=== PATIENT | female | born 1955 | race Caucasian/White ===

== ENCOUNTER 2016-12-04 18:23 | Emergency (ER) | payer SELFPAY ==
[~2016-12-04] VITALS: Ht 167.6 cm; Wt 56.0 kg
[2016-12-04 18:25] VITALS: BP 225/109; PULSE 89; RESP 16; TEMP 98.4; O2SAT 97
[2016-12-04] MEDS ORDERED: BACT400T PO (19:21)
[2016-12-04] MEDS ORDERED: CLIN150 PO (19:50)
--- NOTE | 2016-12-04 19:54 | PD ---
HPI Chief Complaint: Bite or Sting Time Seen by Provider: 19:50 Travel History International Travel<30 days: No Contact w/Intl Traveler<30days: No Traveled to known affect area: No History of Present Illness HPI 60-year-old white female presents emergency department complaints of right wrist swelling and pain. She states that she was stung by a bee in the wrist. She was seen on Tuesday at an urgent care was given prescription for Bactrim. She has had increasing pain and swelling since then. She denies any fever chills. No numbness, tingling or weakness. She has not had a tetanus shot over 5 years. [facility] Past Medical History Narrative Medical dENIES DIABETES AND HYPERTENSION Integumentary: Yes (RECENTLY TREATED FOR MRSA TO L HAND JUST COMPLETED RX FOR BACTRIM) Tetanus Vaccination: > 5 Years Menopausal: Yes Past Surgical History Surgical History: No Previous Surgery Social History Alcohol Use: Yes (RARE) Tobacco Use: No (JUST QUIT 4 DAYS AGO, PACK PER DAY) Substance Use: No Allergies-Medications (Allergen,Severity, Reaction): Coded Allergies: No Known Allergies (Verified , 12/04/16) Reported Meds & Prescriptions Reported Meds & Active Scripts Active Reported Bactrim (Sulfamethoxazole-Trimethoprim) 400-80 Mg Tab 1 Tab PO BID Review of Systems Except as stated in HPI: all other systems reviewed are Neg Physical Exam Narrative GENERAL: This is a well-nourished, well-developed patient, in no apparent distress. SKIN: Patient has a 1.5 x 1.5 cm indurated area with erythema, warmth and tenderness. There is a small central pustule. This is unroofed with an 18- gauge needle. Small amount of pus is expressed. No fluctuance or pointing. HEAD: Atraumatic. Normocephalic. EYES: PERRL, EOMI, no discharge or injection. No scleral icterus. EARS: Clear NOSE: Nasal turbinates appear normal. THROAT: Mucosa pink and moist. Airway patent. NECK: Trachea midline. supple, moves head freely. LUNGS: Clear to auscultation. CV: Regular in rhythm. ABDOMEN: Soft nontender. EXT: No clubbing cyanosis or edema. Data Data Last Documented VS Vital Signs Date Time Temp Pulse Resp B/P Pulse Ox O2 Delivery O2 Flow Rate FiO2 12/04/16 18:25 98.4 89 16 225/109 97 Orders Clindamycin (Cleocin) (12/04/16 20:00) Acetamin-Hydrocod 325-5 Mg ([place] 5-325 (12/04/16 20:00) Tetanus/Diphtheria Tox Adult (Tetanus/Di (12/04/16 20:00) MDM Medical Decision Making Medical Screen Exam Complete: Yes Emergency Medical Condition: Yes Medical Record Reviewed: Yes Differential Diagnosis MDM: High Differential diagnoses: Abscess, folliculitis, cellulitis, lymphangitis, abrasion, contact dermatitis Narrative Course Patient has a superficial abscess to the right dorsal wrist. Status post bee sting. Patient is given clindamycin 300 mg by mouth and Lortab 5 milligram by mouth. The wound is cleansed and dressing applied. Diagnosis Primary Impression: right wrist to superficial abscess Additional Impression: Bee sting Qualified Code: T63.444A - Bee sting, undetermined intent, initial encounter Patient Instructions: Narcotic given in the ED, General Instructions Additional Instructions: Rest. Elevation. keep clean and dry. Warm compresses Daily wound care with soap, water and Neosporin. Three Advil every 6 hours. Continue her Bactrim. Adding clindamycin. Follow-up with a primary care doctor in 2 days. Return to the ER for any problems. Med/Other Pt SpecificInfo: Prescription(s) given, Wound Care Scripts Clindamycin (Cleocin)150 Mg [id number] Mg PO Q6H #56 CAP Prov:Germain Jaimes MD 12/04/16 Disposition: 01 DISCHARGE HOME Condition: Stable Darian Lenz Dec 04, 2016 19:54
[2016-12-04] MEDS ORDERED: CLINDAMYCIN 150 MG CAP PO ONE (20:00)
[2016-12-04] MEDS ORDERED: TETANUS/DIPHTHERIA TOXOID ADULT 0.5 ML VIAL IM ONE (20:00)
[2016-12-04] MEDS ORDERED: ACETAMINOPHEN/HYDROcodone 325 MG/5 MG TAB PO ONE (20:00)
== END 2016-12-04 20:12 | disposition home or self-care (01) ==
LOC: NEPB 18:23
DX: L02.91 Cutaneous abscess, unspecified (principal); T63.441A Toxic effect of venom of bees, accidental (unintentional), initial encounter; X58.XXXA Exposure to other specified factors, initial encounter; Z23 Encounter for immunization
CPT/HCPCS: 10060; 90471; 90714

== ENCOUNTER 2017-01-14 12:00 | Emergency (ER) | payer SELFPAY ==
[~2017-01-14] VITALS: Ht 167.6 cm; Wt 57.0 kg
[~2017-01-14 12:00] MED LIST: BACT400T PO; CLIN150 PO
[2017-01-14 12:03] VITALS: BP 184/81; PULSE 78; RESP 15; TEMP 98; O2SAT 96
[2017-01-14] MEDS ORDERED: NAPROXEN 500 MG TAB PO ONE (12:45)
--- NOTE | 2017-01-14 12:45 | PD ---
HPI Chief Complaint: Injury Time Seen by Provider: 12:43 Travel History International Travel<30 days: No Contact w/Intl Traveler<30days: No Traveled to known affect area: No History of Present Illness HPI Patient comes in complaining of right pinky toe pain that began shortly prior to arrival. Patient states she went to step over a box when she accidentally jammed her toe. Patient states she caitlin taped it to the other toes with a Band -Aid that seemed to help. Pain is worse with walking. Denies any radiation of pain. PFSH Past Medical History Integumentary: Yes (RECENTLY TREATED FOR MRSA TO L HAND JUST COMPLETED RX FOR BACTRIM) ?: Not Menopausal: Yes Social History Alcohol Use: Yes (RARE) Tobacco Use: Yes Substance Use: No Allergies-Medications (Allergen,Severity, Reaction): Coded Allergies: No Known Allergies (Verified , 01/14/17) Reported Meds & Prescriptions Reported Meds & Active Scripts Active Cleocin (Clindamycin HCl) 150 Mg Cap 300 Mg PO Q6H Reported Bactrim (Sulfamethoxazole-Trimethoprim) 400-80 Mg Tab 1 Tab PO BID Review of Systems Except as stated in HPI: all other systems reviewed are Neg Physical Exam Narrative GENERAL: Well-developed, well nourished, in no acute distress, and non-ill appearing. SKIN: Warm and dry. HEAD: Atraumatic. Normocephalic. EYES: Pupils equal and round. EOMI. No scleral icterus. No injection or drainage. ENT: No nasal bleeding or discharge. Mucous membranes pink and moist. NECK: Trachea midline. Supple. No nuclear rigidity. CARDIOVASCULAR: Capillary refill less than 2 seconds. RESPIRATORY: No accessory muscle use. No respiratory distress. MUSCULOSKELETAL: No obvious deformities. No clubbing. No cyanosis. No edema. Full range of motion. Patient worsens to palpation proximal phalanx of right pinky toe. Patient stated strength with flexion and extension of the injured toe. NEUROLOGICAL: Awake and alert. No obvious cranial nerve deficits. Motor grossly within normal limits. Normal speech. PSYCHIATRIC: Appropriate mood and affect; insight and judgment normal. Data Data Last Documented VS Vital Signs Date Time Temp Pulse Resp B/P Pulse Ox O2 Delivery O2 Flow Rate FiO2 01/14/17 12:03 98.0 78 15 184/81 96 Orders Toe (Min 2vws) (01/14/17 ) Naproxen (Naprosyn) (01/14/17 12:45) Splint Or Brace Apply/Monitor (01/14/17 13:25) [facility] Medical Decision Making Medical Screen Exam Complete: Yes Emergency Medical Condition: Yes Differential Diagnosis Fracture, sprain, contusion, other Narrative Course The patient sustained a fracture. The distal extremity appears neurovascularly intact, without evidence of neurovascular injury nor compartment syndrome. Tendon exam also was intact. The effected limb was splinted. The patient was discharged with fracture and splint care instructions and given warnings for vascular compromise. The patient is to follow up with gis mapping technician. The patient agrees with plan. Patient in no obvious distress upon re-evaluation. All pertinent Radiology result(s) discussed with patient. Any questions/concerns in reference to patient diagnosis/condition discussed and clarified prior to patient's discharge. Reinforced sheer importance of close follow up with patient's primary physician or primary care clinic. Instructed patient to return to ED immediately, if symptoms return/worsen. Pt showed understanding of above instructions. Further instructions and recommendations were detailed in discharge paperwork. Pt ambulated without difficulty out of ED at discharge. Diagnosis Primary Impression: Toe fracture, left Qualified Code: S92.515A - Closed nondisplaced fracture of proximal phalanx of lesser toe of left foot, initial encounter Referrals: Leslie Phipps DPM Patient Instructions: General Instructions, Splint Care (DC), Toe Fracture (ED) Additional Instructions: Follow-up with your primary care physician and/or gis mapping technician in 2-3 days for reevaluation. Caitlin tape affected toe to the adjacent toe to help maintain alignment, decrease pain, and for better healing. Wear postop shoe as needed for comfort and protection affected toe. Using [id number] Tylenol and/or ibuprofen as needed for pain. Follow instructions on the packaging. Placed ice on affected area 20 minutes per hour as needed for pain. Return to the emergency department if symptoms get worse. Disposition: 01 DISCHARGE HOME Condition: Stable Ghassan Rodriguez Jan 14, 2017 12:45
--- NOTE | 2017-01-14 13:20 | RADRPT ---
EXAM DATE/TIME: 01/14/2017 12:59 [facility] COMPARISON: No previous studies available for comparison. INDICATIONS : Stubbed fifth digit of right foot today, pain is in fifth digit only MEDICAL HISTORY : previously fractured right great toe SURGICAL HISTORY : None. ENCOUNTER: Initial ACUITY: 1 day PAIN SCORE: 7/10 LOCATION: Right 5th toe FINDINGS: There is a nondisplaced fracture through the fifth proximal phalanx. There is soft tissue swelling. N o joint dislocation. The rest of the bony structures are grossly intact. CONCLUSION: Fracture involving the fifth proximal phalanx. Vineet Santiago MD on January 14, 2017 at 13:18 Board Certified Radiologist. This report was verified electronically.
== END 2017-01-14 13:49 | disposition home or self-care (01) ==
LOC: NEPB 12:00
DX: S92.515A Nondisplaced fracture of proximal phalanx of left lesser toe(s), initial encounter for closed fracture (principal); Z72.0 Tobacco use; W23.1XXA Caught, crushed, jammed, or pinched between stationary objects, initial encounter; Y93.9 Activity, unspecified; Y92.9 Unspecified place or not applicable; Y99.9 Unspecified external cause status
CPT/HCPCS: 73660; 99283; L3260